=== PATIENT | male | born 1950 | race Caucasian/White ===

== ENCOUNTER 2016-12-15 08:57 | Day surgery (SDC) | payer OTHER ==
[2016-12-13 11:27] LABS: HEMOGLOBIN 15.5 g/dL (13.6-17.8)
[2016-12-13 11:40] LABS: CALCIUM, SERUM 9.1 MG/DL (8.5-10.4); CHLORIDE, SERUM 103 MMOL/L (96-112); CO2 (CARBON DIOXIDE) 27 MMOL/L (24-34); CREATININE 0.94 MG/DL (0.70-1.30); GFR AFRICAN AMERICAN 99 ML/MIN (>=60); GFR NON AFRICAN AMERICAN 85 ML/MIN (>=60); GLUCOSE, SERUM 92 MG/DL (60-99); POTASSIUM, SERUM 4.1 MMOL/L (3.5-5.3); SODIUM, SERUM 139 MMOL/L (135-148)
[2016-12-13 11:41] LABS: BUN (BLOOD UREA NITROGEN) 16 MG/DL (6-23)
--- NOTE | ~2016-12-15 | OP ---
Record Of Operation [facility] [address] [place]. [address] NAME: TRACY HOPKINS : 54 STATUS : [facility]#: [id number] AGE: 66 ADM/REG DATE : 12/15/16 MR#: [id number] REPORT SERV DATE: 12/18/16 DICTATED BY: Zoraida RETANA DATE: 12/17/16 REPORT STATUS : Draft TRANSCRIBED BY: NEWTON DATE: 12/17/16 DATE OF PROCEDURE: 12/15/2016 PREOPERATIVE DIAGNOSES: 1. Basal cell carcinoma of the right nasal ala and right nasal tip. 2. Large defect of the right nasal ala and right nasal tip secondary to Mohs micrographic surgical excision of basal cell carcinoma. POSTOPERATIVE DIAGNOSES: 1. Basal cell carcinoma of the right nasal ala and right nasal tip. 2. Large defect of the right nasal ala and right nasal tip secondary to Mohs micrographic surgical excision of basal cell carcinoma. NAME OF OPERATION: 1. Surgical excisional preparation of complex nasal defect. 2. Reconstruction of the right nasal tip portion of the complex defect with a laterally based nasalis muscle myocutaneous bilobed flap. 3. Reconstruction of the right lateral nasal alar component of the complex defect with two full-thickness skin grafts harvested from both the secondary lobe of the bilobed flap and from the laterally excised tissue that was removed in the surgical preparation (in order to facilitate the transfer of the primary lobe into the defect). FINDINGS: A dumbbell-shaped defect of the right ala and right nasal tip, each defect measuring approximately 1.2 cm in diameter, and extending onto the medial cheek near the apical triangle of the upper lip. INDICATIONS: This 66-year-old gentleman underwent Mohs micrographic surgical excision of a biopsy proven basal cell carcinoma. This required at least five, possibly six passes to get clear margins and this was unexpected in the Dermatology Office. The defect became quite large, and he was referred to me for reconstruction. I saw him in the office and discussed the pros and cons, alternatives, benefits, risks, limitations, and complications of reconstruction of this most difficult defect. This was a large defect. He may need another stage of reconstruction later with cartilage added to the lateral ala. He now presents for reconstruction. No guarantees expressed. He understands and wishes to proceed. Proper consent obtained. DESCRIPTION OF PROCEDURE: He was taken into the operating room and given general oral endotracheal anesthesia in the supine position. Sterile drapes were applied after his entire face was prepped with Hibiclens and saline, followed by isopropyl alcohol. This prep was also done on his neck. None of these solutions got in his eyes. None of the alcohol got in the wound. The nostrils were prepped with similar solutions with sterile Q-tips. Sterile drapes had been then applied. It was felt that the best reconstruction would be a nasalis muscle myocutaneous flap reconstruction of the tip portion of this defect and harvesting excess skin from the preparation of this flap to use as nasal skin harvested for reconstruction of the right Record Of Operation [place] [id number] [facility] [place]. [address] NAME: TRACY HOPKINS : 54 STATUS : [facility] PAT#: [id number] AGE: 66 ADM/REG DATE : 12/15/16 MR#: [id number] REPORT SERV DATE: 12/18/16 DICTATED BY: Zoraida RETANA DATE: 12/17/16 REPORT STATUS : Draft TRANSCRIBED BY: NEWTON DATE: 12/17/16 lateral nasal ala. I planned to leave adjacent cheek heal in by secondary intention as it was fairly small. The bilobed flap was designed based on the nasalis muscle laterally. The nose was injected with 1% Xylocaine with 1:100,000 epinephrine and 0.5% Marcaine with 1:200,000 epinephrine. Five minutes elapsed for vasoconstriction. The nasal tip portion of the defect was surgically excisionally prepared with a #15C blade, removing beveled edges. Further preparation of the defect was accomplished with a lateral triangle of skin, with the base adjacent to the defect and the apex pointing superior laterally. This triangle of skin was excised with a #15 blade and Chester Needle tip cautery. The skin was then set aside in saline for future defatting and grafting of the ala. The bilobed flap was incised according to the markings and elevated below the level of the nasalis muscle carefully to avoid trauma to its vasculature. This was done above the level of the periosteum and perichondrium of the nasal skeleton. The secondary lobe defect was closed with 5-0 Vicryl deep. The primary lobe was transposed into the nasal defect portion of the complex nasal defect and sutured in place with interrupted 6-0 Vicryl deep. The secondary lobe was carefully cut to fit and sutured in place with 6-0 Vicryl deep. The excess of the secondary lobe was also saved in saline. The skin edges were coapted with 6-0 Prolene in the area of the primary and secondary lobe. The secondary lobe defect donor site closure was treated with Dermabond on the surface. The skin harvested from the secondary lobe and the skin harvested from the surgical prep were then defatted and then sutured in place with interrupted 6-0 Prolene. These were sutured in place in the right lateral alar portion of the complex defect. These fit beautifully and covered the entire area. These were two grafts. The wounds were cleansed with hydrogen peroxide and dried. The skin grafts were treated with Xeroform, followed by a plastic button that was created from the suture pack, placing button over the Xeroform gauze and then a button inside the nostril. These buttons were held in place with a through and through suture of 5-0 Prolene. This acted as a bolster and secured and immobilized the skin grafts for hopeful "take." The wounds were further cleansed with hydrogen peroxide and dried. Mastisol and paper tape were applied on the nose above the level of the skin grafts. He was awakened and extubated and taken to the recovery room in good condition having tolerated the procedure well. Prescriptions were written for pain relief, antinausea medicine, and antibiotic. He is to recheck in the office in five or six days. JOVANY/SREEL Zoraida Retana M.D. / [id number] Record Of Operation [address] [address] NAME: TRACY HOPKINS : 54 STATUS : [facility]#: [id number] AGE: 66 ADM/REG DATE : 12/15/16 MR#: [id number] REPORT SERV DATE: 12/18/16 DICTATED BY: Zoraida RETANA DATE: 12/17/16 REPORT STATUS : Draft TRANSCRIBED BY: MODL DATE: 12/17/16 CC: Tiffanie Avila MD
[~2016-12-15 08:57] MED LIST: BUSPAR5 PO; HYDROCHLOROT25 MG PO; LISINOPRIL40 MG PO; NORV10 PO; PROZAC40 MG PO; SINGULAIR1 PO
== END 2016-12-15 16:21 | disposition home or self-care (01) ==
LOC: SDC 08:57
PROVIDERS: Specialist
PROC: 0HR1X73 Replacement of Face Skin with Autologous Tissue Substitute, Full Thickness, External Approach (ICD-10-PCS; 2016-12-15)
PROC: 0HB1XZZ Excision of Face Skin, External Approach (ICD-10-PCS; 2016-12-15)
PROC: 0KX00ZZ Transfer Head Muscle, Open Approach (ICD-10-PCS; principal; 2016-12-15 11:00)
DX: Z42.8 Encounter for other plastic and reconstructive surgery following medical procedure or healed injury (principal); Z85.828 Personal history of other malignant neoplasm of skin; Z98.890 Other specified postprocedural states; I10 Essential (primary) hypertension; F41.9 Anxiety disorder, unspecified; F32.9 Major depressive disorder, single episode, unspecified; Z88.0 Allergy status to penicillin; Z79.899 Other long term (current) drug therapy; Z87.891 Personal history of nicotine dependence; Z85.820 Personal history of malignant melanoma of skin
CPT/HCPCS: 80048; 85014; 85018; 93005; C1894; J2250; J2370; J2405; J2710; J3010